=== PATIENT | male | born 1980 | race Two or more races ===

== ENCOUNTER → 2020-08-24 | Outpatient (CLI) | payer OTHER ==
--- NOTE | 2020-08-24 16:07 | KCIC ---
EXAM: AP View of the chest DATE: 08/24/2020 11:30 AM INDICATION: Reason: SUSPECT ACTIVE TB, COUGH, UPPER CHEST PAIN / Spl. Instructions: / History: COMPARISON: 04/24/14 FINDINGS: The heart is not enlarged. Mediastinal and hilar contours are stable. Right lung parenchymal airspace opacities, greater in the right apex. No pleural effusion or pneumoth orax. IMPRESSION: Right-sided consolidative parenchymal opacities, greatest in the right apex. 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 Electronically signed by: Torrey Aguilera MD (08/24/2020 4:04 PM) JERRICA
== END ==
LOC: KCIC 11:26
PROVIDERS: ATTEND Family Medicine
DX: R05 Cough (principal); R07.89 Other chest pain; Z86.11 Personal history of tuberculosis
CPT/HCPCS: 71045